=== PATIENT | female | born 1995 | race African-American/Black ===

== ENCOUNTER 2018-02-07 22:59 | Emergency (ER) | payer OTHER ==
[~2018-02-07] VITALS: Ht 172.7 cm; Wt 77.3 kg
[2018-02-07 23:01] VITALS: BP 148/87
== END 2018-02-07 23:17 | disposition left against medical advice (07) ==
LOC: ER 22:59
DX: Z53.21 Procedure and treatment not carried out due to patient leaving prior to being seen by health care provider (principal)